=== PATIENT | male | born 1995 | race American Indian/Alaskan Native ===

== ENCOUNTER 2021-11-08 20:36 | Emergency (ER) | payer SELFPAY ==
[2021-11-08 20:56] VITALS: BP 140/84
== END 2021-11-08 21:59 | disposition left against medical advice (07) ==
LOC: ED 20:36
DX: R51.9 Headache, unspecified (principal); Z53.21 Procedure and treatment not carried out due to patient leaving prior to being seen by health care provider; V89.2XXA Person injured in unspecified motor-vehicle accident, traffic, initial encounter; Y93.89 Activity, other specified; Y92.89 Other specified places as the place of occurrence of the external cause; Y99.8 Other external cause status